=== PATIENT | male | born 1945 | race Caucasian/White ===

== ENCOUNTER 2021-08-15 11:47 | Emergency (ER) | payer OTHER ==
[~2021-08-15] VITALS: Ht 180.3 cm; Wt 113.4 kg
== END 2021-08-15 14:30 | disposition home or self-care (01) ==
LOC: ED 11:47
DX: S86.912A Strain of unspecified muscle(s) and tendon(s) at lower leg level, left leg, initial encounter (principal); W18.39XA Other fall on same level, initial encounter; Y93.89 Activity, other specified; Y92.89 Other specified places as the place of occurrence of the external cause; Y99.8 Other external cause status